=== PATIENT | female | born 1995 | race Two or more races ===

== ENCOUNTER 2017-02-24 13:12 | Emergency (ER) | payer OTHER ==
[~2017-02-24] VITALS: Ht 177.8 cm; Wt 67.0 kg
[~2017-02-24 13:12] MED LIST: NOHOMEMEDS
[2017-02-24] MEDS ORDERED: PREDNISONE10 MG PO (15:15)
[2017-02-24 16:18] VITALS: BP 138/87
== END 2017-02-24 16:23 | disposition home or self-care (01) ==
LOC: EME 13:12
DX: M51.16 Intervertebral disc disorders with radiculopathy, lumbar region (principal)
CPT/HCPCS: 72170; 99281; 99283